=== PATIENT | female | born 1935 | race Caucasian/White ===

== ENCOUNTER → 2016-08-20 | Outpatient (CLI) | payer MEDICARE, OTHER ==
--- NOTE | 2016-08-22 17:11 | XCELERA REPORT ---
[address] [address] Lower Extremity Arterial Evaluation Name: ZIA SCHMIDT Age: 81 yrs Gender: Female : 1935 Patient Status: Outpatient Patient Location: Study Date: 08/20/2016 01:15 PM Procedure: A color flow and duplex scan of the lower extremity arteries was performed bilaterally with velocity and waveform anaylsis. Ankle brachial indicies performed. 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 Biphasic in the Posterior Tibial artery. 0-19% stenosis at the Posterior Tibial artery. Ankle Brachial index was not done, due to patient discomfort.. Left Side Arterial Evaluation Normal velocity and triphasic waveforms noted from the Common Femoral artery to the Posterior Tibial artery . Biphasic in the Anterior Tibial artery. 0-19% stenosis at the Anterior Tibial artery. Ankle Brachial index is 0.98. Interpretation Summary Mild hemodynamically significant lesions in the bilateral lower extremities, on duplex imaging, at rest. : ТАТЬЯНА ALONSO > Татьяна Alonso
--- NOTE | 2016-08-22 17:42 | XCELERA REPORT ---
[address] [address] Lower Extremity Venous Evaluation Name: ZIA SCHMIDT Age: 81 yrs Gender: Female : 1935 Patient Status: Outpatient Patient Location: Study Date: 08/20/2016 01:34 PM Procedure: A bilateral duplex scan of the lower extremity veins was performed. The evaluation included responses to compression and other maneuvers with patient in the supine and standing positions to assess venous insufficiency. Reason For Study: ULCER Ordering Physician: SARAVANAN ALONSO Performed By: Teo Julien Right Sided Venous Evaluation Deep venous system evaluation shows patent veins with no obstruction or significant reflux identified. Sapheno Femoral junction: no reflux. Femoral vein reflux: no reflux. Greater Saphenous vein, Proximal thigh: reflux: no reflux. Greater Saphenous vein, mid thigh: reflux: 3.3 seconds, 9 mm diameter. Greater Saphenous vein, Distal thigh: reflux: 3 seconds.9 mm. Greater Saphenous vein, Proximal below knee: reflux: 2.7 seconds, 7 mm diameter. Small Saphenous vein: 1.6 second reflux, 3 mm. No significant Perforators identified. Left Sided Venous Evaluation Deep venous system evaluatiion shows patent veins with no obstruction or significant reflux identified. Sapheno Femoral junction: no reflux. Femoral vein reflux: no reflux. Greater Saphenous vein, Proximal thigh: reflux: no reflux. Greater Saphenous vein, Distal thigh: reflux: no reflux. Greater Saphenous vein, Proximal below knee: reflux: 3.4 second reflux.6 mm. No significant Perforators identified. Interpretation Summary No duplex evidence of DVT or obstruction in the bilateral lower extremities. Reflux as noted. Pattern may be amenable to Superficial Greater Saphenous closure on right. : SAARVANAN ALONSO > Saravanan Alonso
== END ==
LOC: SP 12:38
PROVIDERS: ATTEND Surgery
DX: L97.312 Non-pressure chronic ulcer of right ankle with fat layer exposed (principal)
CPT/HCPCS: 93925; 93970